=== PATIENT | male | born 1950 | race African-American/Black ===

== ENCOUNTER 2022-05-19 04:13 | Emergency (ER) | payer MEDICARE, SELFPAY ==
[2022-05-19] MEDS ORDERED: Ciprofloxacin 500 MG TAB ONE (04:45)
[2022-05-19 04:51] LABS: Bilirubin Negative (Negative); Blood, Urine Moderate (Negative); Clarity Clear (Clear); Glucose, Urine (Dipstick) 500 mg/dL (Negative); Ketone, Urine Trace mg/dL (Negative); Leukocyte Negative (Negative); Nitrite Negative (Negative); Protein, Urine (Dipstick) 30 mg/dL (Neg-Trace); Urobilinogen 0.2 mg/dL (Less than 2); pH, Urine 5.5 (5.0-9.0)
[2022-05-19 05:02] LABS: Bacteria/HPF Rare-Few HPF (None Seen); Squamous Epithelial 0-3 HPF (0-3); WBC/HPF None Seen HPF (0-3)
[2022-05-19 05:03] LABS: Mucous/LPF 1+ LPF (<2+)
== END 2022-05-19 08:30 | disposition home or self-care (01) ==
LOC: BURERS 04:13
DX: N30.00 Acute cystitis without hematuria (principal); N40.1 Benign prostatic hyperplasia with lower urinary tract symptoms; R33.8 Other retention of urine; F17.210 Nicotine dependence, cigarettes, uncomplicated; J44.9 Chronic obstructive pulmonary disease, unspecified
CPT/HCPCS: 51702; 81003; 81015; 87086